=== PATIENT | female | born 1935 | race Caucasian/White ===

== ENCOUNTER → 2017-03-28 | Outpatient (CLI) | payer MEDICARE ==
[~2017-03-28] MED LIST: AMLO2.5T PO; BUSP10TA PO; METO50TA11 PO
[2017-03-28 09:09] LABS: HEMATOCRIT 35.7 % (35.0-46.0); MEAN CORPUSCULAR HGB CONC 30.9 % (32.0-36.0); PLATELET COUNT 275 TH/MM3 (150-450); RED BLOOD COUNT 5.24 MIL/MM3 (4.00-5.30); REVIEW FLAG FINAL; WHITE BLOOD COUNT 6.5 TH/MM3 (4.0-11.0)
[2017-03-28 09:20] LABS: APTT (PATIENT) 24.1 SEC (24.3-30.1); PROTHROMBIN TIME - PATIENT 10.9 SEC (9.8-11.6)
[2017-03-28 09:27] LABS: BLOOD, URINE NEG (NEG); GLUCOSE,URINE NEG (NEG); KETONE, URINE NEG (NEG); NITRITE,URINE NEG (NEG); SQUAMOUS EPITHELIAL CELL URINE <1 /hpf (0-5); URINE COLOR YELLOW (YELLW/STRAW)
[2017-03-28 09:29] LABS: COMMENT (UR) CATH-CULT NOT IND; CULTURE IF INDICATED CATH CULTURE NOT IND
[2017-03-28 10:13] LABS: BICARBONATE 25.2 MEQ/L (21.0-32.0); POTASSIUM 4.4 MEQ/L (3.5-5.1)
--- NOTE | 2017-03-28 21:16 | EKG ---
Date Performed: 03/28/2017 Time Performed: 08:44:10 PTAGE: 81 years EKG: Sinus rhythm WITH OCCASIONAL SUPRAVENTRICULAR PREMATURE COMPLEXES MINIMAL ST DEPRESSION BORDERLINE ECG NO PREVIOUS TRACING DOCTOR: Stefan Elliott Interpretating Date/Time 03/28/2017 21:15:38
== END ==
LOC: CPRE 08:11
PROVIDERS: ATTEND Orthopaedic Surgery
DX: Z01.810 Encounter for preprocedural cardiovascular examination (principal); Z01.812 Encounter for preprocedural laboratory examination; M79.609 Pain in unspecified limb; M17.11 Unilateral primary osteoarthritis, right knee; M21.061 Valgus deformity, not elsewhere classified, right knee; I10 Essential (primary) hypertension
CPT/HCPCS: 36415; 80048; 81001; 85027; 85610; 85730; 93005

== ENCOUNTER 2017-04-08 05:18 | Inpatient (IN) | payer MEDICARE ==
[~2017-04-08] VITALS: Ht 165.1 cm; Wt 62.7 kg
[2017-04-08] MEDS ORDERED: POVIDONE IODINE 5% (ANTISEPSIS KIT) 4 APPLICATIONS EACH NARE PRN (05:45)
[2017-04-08] MEDS ORDERED: EXPAREL PERI-ARTICULAR INJECTION (TOTAL VOL. 100 ML) P-ARTICULR SCH ×2 (05:45)
[2017-04-08] MEDS ORDERED: CHLORHEXIDINE GLUCONATE 4% SOLN 120 ML BTL TOPICAL SCH (05:45)
[2017-04-08] MEDS ORDERED: LACTATED RINGER'S 1000 ML IV PRN (05:45)
[2017-04-08] MEDS ORDERED: INSULIN HUMAN REGULAR 1,000 UNITS/10 ML VIAL SQ PRN (05:45)
[2017-04-08] MEDS ORDERED: CLINDAMYCIN 900 MG/NS 100 ML IV SCH ×2 (05:45)
[2017-04-08] MEDS ORDERED: CHLORHEXIDINE GLUCONATE 2 % 1 PACK (2 CLOTHS) TOPICAL PRN (05:45)
[2017-04-08] MEDS ORDERED: TRANEXAMIC ACID INJ 625 MG in SODIUM CHLORIDE 0.9% INJ 100 ML IV SCH ×4 (05:45)
[2017-04-08] MEDS ORDERED: METOPROLOL TARTRATE 25 MG TAB PO PRN (05:45)
[2017-04-08] MEDS ORDERED: SODIUM CHLORID 0.9% 500 ML IV PRN (05:45)
[2017-04-08] MEDS ORDERED: GENTAMICIN SULFATE 80 MG/2 ML VIAL ONE (06:09)
[2017-04-08] MEDS ORDERED: CLINDAMYCIN PHOS 900 MG/6 ML VIAL ONE (06:27)
[2017-04-08] MEDS ORDERED: BUPIVACAINE HCL PF 0.5% 30 ML VIAL ONE (06:41)
--- NOTE | 2017-04-08 06:42 | HHI.FF ---
Face to Face Verification Diagnosis: (1) Status post total right knee replacement Physical Therapy Gait training Knee: Total knee, Protocol: Right, Gait training, Full weight bearing Right LE Weight Bearing: WB as tolerated Right LE Range of Motion: Active ROM (AROM, AAROM, PROM. ROM goal is 0 to 140 degrees. ROM in the OR was 0 to 150 degrees.) Nursing Nursing: Dressing changes Dressing Changes: Daily dressing change (To start at postop day 7.), Coverderm/ Primapore Additional Instructions Remove steristrips on postop day 14. I have seen patient Myla Moran on 04/08/17. My clinical findings support the need for the requested home health care services because: Ltd mobility - disease progression Limited ability to care for self High risk of falls I certify that my clinical findings support that this patient is homebound because: Post-op weakness Unsteady gait/balance Unsafe to leave home unassisted Sintia Wayne MD (Charles) Apr 08, 2017 06:42
[2017-04-08] MEDS ORDERED: ZOLPIDEM TARTRATE 5 MG TAB PO PRN (06:45)
[2017-04-08] MEDS ORDERED: SODIUM CHLORIDE 0.9% FLUSH 5 ML FLUSH IVF PRN (06:45)
[2017-04-08] MEDS ORDERED: Post-op Orders (for Pharmacy) MISC XX ONE (06:45)
[2017-04-08] MEDS ORDERED: TRANEXAMIC ACID INJ 0 MG in SODIUM CHLORIDE 0.9% INJ 100 ML IV SCH (06:45)
[2017-04-08] MEDS ORDERED: ONDANSETRON HCL 4 MG/2 ML VIAL IVP PRN (06:45)
[2017-04-08] MEDS ORDERED: MORPHINE SULFATE 4 MG/ML INJ IV PUSH PRN (06:45)
[2017-04-08] MEDS ORDERED: ACETAMINOPHEN/HYDROcodone 325 MG/7.5 MG TAB PO PRN (06:45)
[2017-04-08] MEDS ORDERED: ASPI-99 PO (06:46)
--- NOTE | 2017-04-08 09:08 | HHI.PR ---
Immediate Post Op Note Procedure Date: Apr 08, 2017 Pre Op Diagnosis: (1) Primary osteoarthritis of right knee Post Op Diagnosis: (1) Primary osteoarthritis of right knee Surgeon: Isidoro Wayne MD Contact Center Associate(s): Mick Horton Procedure: Right total knee arthroplasty with [place] Triathlon prosthesis (uncemented) Findings: OA left knee Complications: none Specimen(s) removed: none Estimated blood loss: 150 ml Anesthesia: Regional Block (adductor canal), Spinal, Local (Exparel) Drains: Hemovac (2) IVF Patient to: PACU Patient Condition: Good Implant/Devices: SEE IMPLANT LOG (if applicable) Date/Time of Procedure: SEE SURGICAL CARE RECORD Sintia Wayne MD (Charles) Apr 08, 2017 09:08
--- NOTE | 2017-04-08 09:08 | HHI.PR ---
Immediate Post Op Note Procedure Date: Apr 08, 2017 Pre Op Diagnosis: (1) Primary osteoarthritis of right knee Post Op Diagnosis: (1) Primary osteoarthritis of right knee Surgeon: Isidoro Wayne MD Web Operations Manager(s): Mick Horton Procedure: Right total knee arthroplasty with [place] Triathlon prosthesis (uncemented) Findings: OA left knee Complications: none Specimen(s) removed: none Estimated blood loss: 150 ml Anesthesia: Regional Block (adductor canal), Spinal, Local (Exparel) Drains: Hemovac (2) IVF Patient to: PACU Patient Condition: Good Implant/Devices: SEE IMPLANT LOG (if applicable) Date/Time of Procedure: SEE SURGICAL CARE RECORD Sintia Wayne MD (Charles) Apr 08, 2017 09:08
[2017-04-08] MEDS ORDERED: HYDR-3580 PO (09:22)
[2017-04-08] MEDS: LACTATED RINGER'S 1000 ML INJ 1,000 ML IV SCH ×2 (09:50→18:14)
[2017-04-08] MEDS ORDERED: *morphine SULFATE 8 MG/ML PERIprocedure ONLY ONE (09:57)
--- NOTE | 2017-04-08 10:53 | MP ---
cc: Yana PETTY. DATE OF SURGERY 04/08/2017 PREOPERATIVE DIAGNOSIS Primary osteoarthritis right knee POSTOPERATIVE DIAGNOSIS Primary osteoarthritis right knee OPERATION PERFORMED Right total knee arthroplasty with [place] Triathlon prosthesis (uncemented). SURGEON Candi Petty MD [employer] Mick Saucedo ANESTHESIA Spinal with supplemental adductor canal block regional and local with Exparel. INDICATIONS AND FINDINGS This 81-year-old woman has had over 10 years of right knee pain that has progressively worsened to the point that her ambulation tolerance is now about 20 minutes. She has episodic giving-way with lateral pain especially, difficulty standing from a seated position, difficulty with changes in levels and difficulty fully extending the knee. She has been treated with analgesics, anti-inflammatory agents, exercise, intra-articular corticosteroids, ambulatory aids and has not responded to conservative measures at this time. PHYSICAL EXAM Showed significant genu valgum with lateral laxity and palpable osteophytes especially laterally. There is crepitation on range of motion. X-rays show loss of articular cartilage to [id number] in the lateral compartment with erosion into the lateral tibial plateau more posteriorly. There are medial, lateral and patellofemoral osteophytes. There is subchondral sclerosis. OPERATIVE FINDINGS The operative findings are consistent with the radiographic findings. There was loss of articular cartilage to exposed subchondral bone with eburnation in the lateral femur and tibia. There is also degeneration in the medial compartment with significant cartilaginous irregularity, as well as the patellofemoral compartment. PROSTHESIS USED [place] Triathlon prosthesis. The femoral component was a size 4 cruciate-retaining uncemented prosthesis. The tibia was a size 4 Tritanium baseplate with a 9 mm cruciate-retaining spacer of X3 polyethylene. The patella was a Tritanium backed asymmetric patella size 32. PROCEDURE The patient was brought to the clean-air operating suite and a spinal anesthetic was administered followed by an adductor canal block. She was then placed in the supine position on the operating table with a small bolster under the right hip. A pneumatic tourniquet was applied to the right thigh. The limb was then prepped with alcohol, Hibiclens and Chloraprep and draped in the usual manner with the knee draped free. An appropriate time-out procedure was carried out. An anterior incision was then made from about three fingerbreadths above the superior medial pole of patella down to the tibial tubercle. The incision was deepened through the subcutaneous tissues to the retinacular structures which were exposed medially and laterally. The medial retinacular incision was then made from the superior medial pole of patella down to the tibial tubercle, under the quadriceps tendon splitting it longitudinally in the medial one-third. The patella was reflected. The infrapatellar fat pad was debulked. The posterior surface of the patella was excised with the oscillating saw. A patella protector was applied. Fenestrations were then made in the distal femur and proximal tibia for intramedullary referencing guides. The distal femoral cutting guide and jig were assembled for a 5 degrees 8-mm cut. The distal femoral cut was completed with the oscillating saw. The sizing guide was then positioned along white sides line in the epicondylar axis. This was stabilized with pins. The size was determined to be a size four femur. The sizing guide was then removed. The four in one cutting block was positioned in place. Anterior and posterior cuts were made followed by posterior and anterior chamfer cuts. Osteophytes were trimmed. Medial and lateral meniscectomies were completed. Attention was directed to the tibia. The proximal tibial cutting guide and jig were assembled and positioned appropriately as far as rotations concerned and stabilized with pins. The depth of cut was verified with the stylus off the lateral side to resected 2 mm from the low side. The cutting block was stabilized with pins. This was adjusted according to appropriate depth with the spacer block. The was stabilized with a cross pin. The proximal tibial cut was then completed with the oscillating saw taking care to prevent injury to neurovascular and ligamentous structures. The spacer block determined that this was an appropriate cut. It was slightly tight laterally and therefore dissection was carried out to the iliotibial band. Pie-crusting of the iliotibial band allowed for some improvement in the mobility and position of the prosthesis. The posterior capsule and medial and lateral capsule were then anesthetized with local anesthetic. The tibial baseplate trial with a spacer size was inserted into position. The femoral trial was impacted into place and seated appropriately. The tibia was adjusted for appropriate rotation and position and stabilized with pins. The patella drill guide was positioned in place and patella drill holes made. The trial patella was positioned in place. The knee was taken through a range of motion which was easily 0 degrees extension to 150 degrees of flexion with appropriate tracking of the patella and appropriate stability. The femoral drill holes were then made. The femoral and patella trials were removed. The tibial spacer was removed. The tibial punch was impacted through its guide. The tibial drill guide was positioned after placement of bone graft in the fenestrations. The cut ends of bone were then cleaned with pulse lavage. The tibial baseplate was impacted into place and seated appropriately. The spacer was inserted and impacted into place. The femoral component was then impacted into place and seated appropriately. The patella had been seated in place and tightened with a patella vice. The remainder of the Exparel was injected throughout the knee. Drains were brought out the superior and lateral aspect of the suprapatellar pouch. Wound closure then commenced using 0 Vicryl interrupted [id number] sutures for retinacular and capsular structures and fascial structures, 2-0 Vicryl interrupted simple sutures with buried knots for the subcutaneous tissues and 4-0 Monocryl continuous subcuticular closure for the skin. The wound was dressed with Steri-Strips, followed by Octylseal dressing, sterile Sof-Rol, cooling pad, further sterile Sof-Rol, and Nathan bandage from the base of the toes to midthigh. The patient was transferred from the operating room to the recovery room in satisfactory condition having tolerated the procedure well. Counts were correct. Specimens, none. Estimated blood loss 150 mL. MD LISA Butler/CLOVIS /9:10 AM /10:37 AM
[2017-04-08] MEDS ORDERED: DO NOT ADM ANY ANTICOAGULANT DRUGS PRN (11:00)
--- NOTE | 2017-04-08 11:03 | RADRPT ---
EXAM DATE/TIME: 04/08/2017 09:58 [place] COMPARISON: No previous studies available for comparison. INDICATIONS : Post op right total knee. MEDICAL HISTORY : Unobtainable. SURGICAL HISTORY : Unobtainable. ENCOUNTER: Initial ACUITY: 1 day PAIN SCORE: Non-responsive. LOCATION: Right knee. FINDINGS: Two-view examination demonstrates total knee arthroplasty with orthotopic alignment of the osseous st ructures. The hardware appears intact. Surgical drain in the suprapatellar region. Vascular calcif ication. CONCLUSION: Expected postoperative findings total knee arthroplasty. Jeremie Campos MD on April 08, 2017 at 11:00 Board Certified Radiologist. This report was verified electronically.
[2017-04-08] MEDS: amLODIPine BESYLATE 5 MG TAB PO SCH (11:20)
[2017-04-08] MEDS: busPIRone HCL 10 MG TAB PO SCH ×2 (11:49→21:25)
[2017-04-08] MEDS: KETOROLAC TROMETHAMINE 30 MG/ML (IVP) VIAL IVP SCH ×2 (11:49→18:10)
[2017-04-08] MEDS ORDERED: *MEPERIDINE 25 MG INJ VIAL PERIprocedural Use ONLY ONE (12:15)
[2017-04-08] MEDS: MAGNESIUM HYDROXIDE SUSP 30 ML CUP PO PRN (13:09)
[2017-04-08 15:43] VITALS: BP 115/70; PULSE 68; RESP 17; TEMP 96.1; O2SAT 100
[2017-04-08] MEDS: CLINDAMYCIN INJ 900 MG in SODIUM CHLORIDE 0.9% INJ 100 ML IV SCH (16:00)
[2017-04-08 16:05] VITALS: O2SAT 93
[2017-04-08] MEDS ORDERED: PILL SPLITTER OTHER PRN (18:15)
[2017-04-08 19:35] VITALS: BP 107/68; PULSE 79; RESP 18; TEMP 97.5; O2SAT 97
--- NOTE | 2017-04-08 21:16 | PD.CONS ---
[facility] Consult Requested By Dr. Wayne Reason for Consult Medical management history of hypertension Primary Care Physician Primary Care physician from [facility] Dr. Collins Diagnoses: History of Present Illness Patient is a very pleasant 81-year-old female with known history of hypertension who has been having increasing pain on the right knee for the last 5 years. Patient gets steroid shots periodically and this hasn't been working. Increasing pain prompted patient to decide on having this surgery. She described pain as "crippling". Patient underwent right total knee arthroplasty this morning is doing well. Pain is well controlled. Patient is very motivated with more physical therapy[facility] Review of Systems Constitutional: DENIES: Fever, Weight loss, Chills, Change in appetite Eyes: DENIES: Blurred vision, Double Vision Ears, nose, mouth, throat: DENIES: Tinnitus, Ear Pain, Epistaxis, Odynophagia Respiratory: DENIES: Cough, Hemoptysis, Sputum production, Shortness of breath Cardiovascular: DENIES: Chest pain, Palpitations, Dyspnea on Exertion, Lower Extremity Edema, Orthopnea Gastrointestinal: DENIES: Black stools, Bloody stools, Difficulty Swallowing, Anorexia Genitourinary: DENIES: Urgency, Hematuria, Vaginal discharge Musculoskeletal: DENIES: Joint pain, Stiffness Integumentary: DENIES: Pruritus Hematologic/lymphatic: DENIES: Bruising Immunologic/allergic: DENIES: Urticaria Neurologic: DENIES: Headache, Speech Problems, Tremor Psychiatric: DENIES: Suicidal Ideation, Homicidal Ideation Past Family Social History Allergies: Coded Allergies: Penicillins (Verified Allergy, Severe, Anaphylaxis, 04/08/17) Past Medical History History of hypertension History of anxiety disorder Past Surgical History Left knee surgery about 20 years ago History of hemorrhoidectomy Reported Medications Toprol 50 mg XL daily Amlodipine 2.5 mg daily BuSpar 10 mg twice a day Active Ordered Medications See EMR Family History Family history noncontributory Social History Never smoked. Drinks wine before dinner at least 3 times a week No history of substance abuse Physical Exam Vital Signs Vital Signs Date Time Temp Pulse Resp B/P (MAP) Pulse Ox O2 Delivery O2 Flow Rate FiO2 04/08/17 16:05 93 Nasal Cannula 3.00 04/08/17 15:43 96.1 68 17 115/70 (85) 100 04/08/17 12:00 98.6 58 15 155/77 (103) 96 Nasal Cannula 2 04/08/17 11:00 64 15 164/87 (112) 100 Nasal Cannula 3 04/08/17 10:30 56 20 162/96 (118) 100 Nasal Cannula 3 04/08/17 10:15 50 17 160/90 (113) 100 Nasal Cannula 3 04/08/17 10:02 14 04/08/17 10:00 46 20 140/94 (109) 100 Nasal Cannula 3 04/08/17 09:45 52 22 114/64 (81) 100 Nasal Cannula 3 04/08/17 09:38 97.8 56 20 103/69 (80) 100 Nasal Cannula 3 04/08/17 05:51 97.9 70 20 183/96 (125) 100 Physical Exam GENERAL: This is a well-nourished, well-developed patient, in no apparent distress. Awake alert oriented 3 speech clear SKIN: Cool and dry. HEAD: Atraumatic. Normocephalic. No temporal or scalp tenderness. EYES: Pupils equal round and reactive. Extraocular motions intact. No scleral icterus. No injection or drainage. ENT: Nose without bleeding, purulent drainage or septal hematoma. Throat without erythema, tonsillar hypertrophy or exudate. Uvula midline. Airway patent. NECK: Trachea midline. No JVD or lymphadenopathy. Supple, nontender, no meningeal signs. CARDIOVASCULAR: Regular rate and rhythm without murmurs, gallops, or rubs. RESPIRATORY: Clear to auscultation. Breath sounds equal bilaterally. No wheezes , rales, or rhonchi. GASTROINTESTINAL: Abdomen soft, non-tender, nondistended. No hepato-splenomegaly , or palpable masses. No guarding. MUSCULOSKELETAL: Right knee with post op dressing in place on a CPM, good peripheral pulses NEUROLOGICAL: Nonfocal Imaging Last Impressions Knee X-Ray 04/08/17 0635 Signed Impressions: Service Date/Time: Saturday, April 08, 2017 09:58 - CONCLUSION: Expected postoperative findings total knee arthroplasty. Jeremie Campos MD Assessment and Plan Assessment and Plan 81-year-old female admitted for Status post right total knee arthroplasty 04/08 secondary to right knee osteoarthritis Orthopedic surgery following ASA daily for DVT prophylaxis per Ortho. PT consult. Incentive spirometry hourly. Patient with good efforts. When necessary pain meds per primary service Hypertension continue on Toprol-XL 50 mg daily. Amlodipine 2.5 mg daily History of anxiety disorder. Continue BuSpar 10 mg twice a day Discharge planning going to rehabilitation facility in [facility] per patient showcase maker consulted Thank you for this consult we'll follow patient in-house with you Discussed Condition With Patient Zuleyka Avilez MD Apr 08, 2017 21:16
--- NOTE | 2017-04-08 21:16 | PD.CONS ---
[facility] By Dr. Wayne Reason for Consult Medical management history of hypertension Primary Care Physician Primary Care physician from [facility] Dr. Collins Diagnoses: History of Present Illness Patient is a very pleasant 81-year-old female with known history of hypertension who has been having increasing pain on the right knee for the last 5 years. Patient gets steroid shots periodically and this hasn't been working. Increasing pain prompted patient to decide on having this surgery. She described pain as "crippling". Patient underwent right total knee arthroplasty this morning is doing well. Pain is well controlled. Patient is very motivated with more physical therapy. [facility] Review of Systems Constitutional: DENIES: Fever, Weight loss, Chills, Change in appetite Eyes: DENIES: Blurred vision, Double Vision Ears, nose, mouth, throat: DENIES: Tinnitus, Ear Pain, Epistaxis, Odynophagia Respiratory: DENIES: Cough, Hemoptysis, Sputum production, Shortness of breath Cardiovascular: DENIES: Chest pain, Palpitations, Dyspnea on Exertion, Lower Extremity Edema, Orthopnea Gastrointestinal: DENIES: Black stools, Bloody stools, Difficulty Swallowing, Anorexia Genitourinary: DENIES: Urgency, Hematuria, Vaginal discharge Musculoskeletal: DENIES: Joint pain, Stiffness Integumentary: DENIES: Pruritus Hematologic/lymphatic: DENIES: Bruising Immunologic/allergic: DENIES: Urticaria Neurologic: DENIES: Headache, Speech Problems, Tremor Psychiatric: DENIES: Suicidal Ideation, Homicidal Ideation Past Family Social History Allergies: Coded Allergies: Penicillins (Verified Allergy, Severe, Anaphylaxis, 04/08/17) Past Medical History History of hypertension History of anxiety disorder Past Surgical History Left knee surgery about 20 years ago History of hemorrhoidectomy Reported Medications Toprol 50 mg XL daily Amlodipine 2.5 mg daily BuSpar 10 mg twice a day Active Ordered Medications See EMR Family History Family history noncontributory Social History Never smoked. Drinks wine before dinner at least 3 times a week No history of substance abuse Physical Exam Vital Signs Vital Signs Date Time Temp Pulse Resp B/P (MAP) Pulse Ox O2 Delivery O2 Flow Rate FiO2 04/08/17 16:05 93 Nasal Cannula 3.00 04/08/17 15:43 96.1 68 17 115/70 (85) 100 04/08/17 12:00 98.6 58 15 155/77 (103) 96 Nasal Cannula 2 04/08/17 11:00 64 15 164/87 (112) 100 Nasal Cannula 3 04/08/17 10:30 56 20 162/96 (118) 100 Nasal Cannula 3 04/08/17 10:15 50 17 160/90 (113) 100 Nasal Cannula 3 04/08/17 10:02 14 04/08/17 10:00 46 20 140/94 (109) 100 Nasal Cannula 3 04/08/17 09:45 52 22 114/64 (81) 100 Nasal Cannula 3 04/08/17 09:38 97.8 56 20 103/69 (80) 100 Nasal Cannula 3 04/08/17 05:51 97.9 70 20 183/96 (125) 100 Physical Exam GENERAL: This is a well-nourished, well-developed patient, in no apparent distress. Awake alert oriented 3 speech clear SKIN: Cool and dry. HEAD: Atraumatic. Normocephalic. No temporal or scalp tenderness. EYES: Pupils equal round and reactive. Extraocular motions intact. No scleral icterus. No injection or drainage. ENT: Nose without bleeding, purulent drainage or septal hematoma. Throat without erythema, tonsillar hypertrophy or exudate. Uvula midline. Airway patent. NECK: Trachea midline. No JVD or lymphadenopathy. Supple, nontender, no meningeal signs. CARDIOVASCULAR: Regular rate and rhythm without murmurs, gallops, or rubs. RESPIRATORY: Clear to auscultation. Breath sounds equal bilaterally. No wheezes , rales, or rhonchi. GASTROINTESTINAL: Abdomen soft, non-tender, nondistended. No hepato-splenomegaly , or palpable masses. No guarding. MUSCULOSKELETAL: Right knee with post op dressing in place on a CPM, good peripheral pulses NEUROLOGICAL: Nonfocal Imaging Last Impressions Knee X-Ray 04/08/17 0635 Signed Impressions: Service Date/Time: Saturday, April 08, 2017 09:58 - CONCLUSION: Expected postoperative findings total knee arthroplasty. Jeremie Campos MD Assessment and Plan Assessment and Plan 81-year-old female admitted for Status post right total knee arthroplasty 04/08 secondary to right knee osteoarthritis Orthopedic surgery following ASA daily for DVT prophylaxis per Ortho. PT consult. Incentive spirometry hourly. Patient with good efforts. When necessary pain meds per primary service Hypertension continue on Toprol-XL 50 mg daily. Amlodipine 2.5 mg daily History of anxiety disorder. Continue BuSpar 10 mg twice a day Discharge planning going to rehabilitation facility in [facility] per patient mental health case manager consulted Thank you for this consult we'll follow patient in-house with you Discussed Condition With Patient Zuleyka Avilez MD Apr 08, 2017 21:16
[2017-04-08] MEDS: SODIUM CHLORIDE 0.9% FLUSH 5 ML FLUSH IVF SCH (21:25)
[2017-04-09] VITALS (8 sets, daily range): BP systolic 111–130; BP diastolic 65–82; PULSE 67–77; RESP 17–19; TEMP 96.4–97.8; O2SAT 92–100
[2017-04-09] MEDS: CLINDAMYCIN INJ 900 MG in SODIUM CHLORIDE 0.9% INJ 100 ML IV SCH ×2 (00:05→06:44)
[2017-04-09] MEDS: KETOROLAC TROMETHAMINE 30 MG/ML (IVP) VIAL IVP SCH ×5 (00:05→22:50)
[2017-04-09 06:14] LABS: HEMATOCRIT 26.1 % (35.0-46.0); HEMOGLOBIN 8.3 GM/DL (11.6-15.3)
[2017-04-09] MEDS: MAGNESIUM HYDROXIDE SUSP 30 ML CUP PO PRN (06:44)
[2017-04-09] MEDS: LACTATED RINGER'S 1000 ML INJ 1,000 ML IV SCH ×2 (07:35→19:28)
--- NOTE | 2017-04-09 07:37 | PD.ORT.PN ---
Subjective Post Op Day #: 1 Subjective Remarks She is doing well, with minimal pain. She could have walked more with PT if given the chance. Range of Motion -5 to 93 degrees. Distance Walked 55 feet. Objective Vitals Vital Signs Date Time Temp Pulse Resp B/P (MAP) Pulse Ox O2 Delivery O2 Flow Rate FiO2 04/09/17 04:05 97.4 77 17 123/70 (87) 98 04/09/17 00:05 97.4 75 17 113/69 (84) 98 04/08/17 19:35 97.5 79 18 107/68 (81) 97 04/08/17 16:05 93 Nasal Cannula 3.00 04/08/17 15:43 96.1 68 17 115/70 (85) 100 04/08/17 12:00 98.6 58 15 155/77 (103) 96 Nasal Cannula 2 04/08/17 11:00 64 15 164/87 (112) 100 Nasal Cannula 3 04/08/17 10:30 56 20 162/96 (118) 100 Nasal Cannula 3 04/08/17 10:15 50 17 160/90 (113) 100 Nasal Cannula 3 04/08/17 10:02 14 04/08/17 10:00 46 20 140/94 (109) 100 Nasal Cannula 3 04/08/17 09:45 52 22 114/64 (81) 100 Nasal Cannula 3 04/08/17 09:38 97.8 56 20 103/69 (80) 100 Nasal Cannula 3 I/O 04/08/17 04/08/17 04/08/17 04/09/17 04/09/17 04/09/17 07:00 15:00 23:00 07:00 15:00 23:00 Intake Total 1000 ml 460 ml 586 ml Output Total 320 ml 80 ml 40 ml Balance 680 ml 380 ml 546 ml Intake Oral 360 ml 480 ml IV Total 400 ml 100 ml 106 ml Other 600 ml Output Drainage Total 170 ml 80 ml 40 ml Estimated Blood Loss 150 ml # Voids 2 1 # Bowel Movements 0 0 Result Diagram: 04/09/17 0445 Imaging Last 72 hours Impressions Knee X-Ray 04/08/17 0635 Signed Impressions: Service Date/Time: Saturday, April 08, 2017 09:58 - CONCLUSION: Expected postoperative findings total knee arthroplasty. Jeremie Campos MD Objective Remarks She is resting comfortably, supine in bed in the CPM. The dressing is dry and intact. The neurovascular status is intact. Assessment & Plan Ortho Post Op Day #: 1 Problem List: (1) Status post total right knee replacement ICD Codes: Z96.651 - Presence of right artificial knee joint Plan: Continue postop care and PT. Assessment and Plan Condition: Good. Orthopaedically stable. DVT prophylaxis: ASA, sequentials, TEDs. Discharge plans: Home with HHC versus SNF ([facility]) for therapy, since she lives alone. Has appointment. Rx Adrian 7.5/325 Sintia Wayne MD (Charles) Apr 09, 2017 07:37
--- NOTE | 2017-04-09 08:44 | HHI.PR ---
Subjective Remarks The patient is in bed says pain is better controlled today. However she is complaining of constipation for 3 days. No abdominal pain no nausea or vomiting. No chest pain or shortness of breath. Encourage PT, encourage incentive spirometry. She doesn't have any fever or chills. Objective Vitals Vital Signs Date Time Temp Pulse Resp B/P (MAP) Pulse Ox O2 Delivery O2 Flow Rate FiO2 04/09/17 07:43 96.9 71 19 120/73 (89) 99 04/09/17 04:05 97.4 77 17 123/70 (87) 98 04/09/17 00:05 97.4 75 17 113/69 (84) 98 04/08/17 19:35 97.5 79 18 107/68 (81) 97 04/08/17 16:05 93 Nasal Cannula 3.00 04/08/17 15:43 96.1 68 17 115/70 (85) 100 04/08/17 12:00 98.6 58 15 155/77 (103) 96 Nasal Cannula 2 04/08/17 11:00 64 15 164/87 (112) 100 Nasal Cannula 3 04/08/17 10:30 56 20 162/96 (118) 100 Nasal Cannula 3 04/08/17 10:15 50 17 160/90 (113) 100 Nasal Cannula 3 04/08/17 10:02 14 04/08/17 10:00 46 20 140/94 (109) 100 Nasal Cannula 3 04/08/17 09:45 52 22 114/64 (81) 100 Nasal Cannula 3 04/08/17 09:38 97.8 56 20 103/69 (80) 100 Nasal Cannula 3 I/O 04/08/17 04/08/17 04/08/17 04/09/17 04/09/17 04/09/17 07:00 15:00 23:00 07:00 15:00 23:00 Intake Total 1000 ml 460 ml 586 ml Output Total 320 ml 80 ml 40 ml Balance 680 ml 380 ml 546 ml Intake Oral 360 ml 480 ml IV Total 400 ml 100 ml 106 ml Other 600 ml Output Drainage Total 170 ml 80 ml 40 ml Estimated Blood Loss 150 ml # Voids 2 1 # Bowel Movements 0 0 Result Diagram: 04/09/17 0445 Imaging Last Impressions Knee X-Ray 04/08/1735 Signed Impressions: Service Date/Time: Saturday, April 08, 2017 09:58 - CONCLUSION: Expected postoperative findings total knee arthroplasty. Jeremie Campos MD Objective Remarks GENERAL: This is a pleasant elderly female, well-nourished, well-developed patient, in no apparent distress. Awake alert oriented 3 speech clear SKIN: Cool and dry. CARDIOVASCULAR: Regular rate and rhythm without murmurs, gallops, or rubs. RESPIRATORY: Clear to auscultation. Breath sounds equal bilaterally. No wheezes , rales, or rhonchi. GASTROINTESTINAL: Abdomen soft, non-tender, nondistended. No hepato-splenomegaly , or palpable masses. No guarding. MUSCULOSKELETAL: Right knee with post op dressing in place on a CPM, good peripheral pulses NEUROLOGICAL: Nonfocal A/P Assessment and Plan 81-year-old female with : Severe osteoarthritis of the right knee. 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 PT consult. Incentive spirometry hourly. Patient with good efforts. When necessary pain meds per primary service Hypertension -continue on Toprol-XL 50 mg daily. Amlodipine 2.5 mg daily History of anxiety disorder. Continue BuSpar 10 mg twice a day Constipation. Add lactulose, continue bowel movement regimen. Discharge planning going to rehabilitation facility in [facility] per patient , rn case manager consulted and following for DC plan Thank you for this consult we'll follow with you Discussed Condition With Patient, nurse Kristine Sifuentes MD Apr 09, 2017 08:44
[2017-04-09] MEDS: SODIUM CHLORIDE 0.9% FLUSH 5 ML FLUSH IVF SCH ×2 (08:59→19:35)
[2017-04-09] MEDS: busPIRone HCL 10 MG TAB PO SCH ×2 (08:59→19:34)
[2017-04-09] MEDS: amLODIPine BESYLATE 5 MG TAB PO SCH (08:59)
[2017-04-09] MEDS: METOPROLOL SUCCINATE 50 MG EXTENDED RELEASE TAB PO SCH (08:59)
[2017-04-09] MEDS: ASPIRIN EC 81 MG TABEC PO SCH ×2 (08:59→19:34)
[2017-04-09] MEDS ORDERED: INFLUENZA VIRUS VACCINE (QUADRIVALENT) 0.5 ML SYR IM ONE (10:00)
[2017-04-09] MEDS ORDERED: PNEUMOCOCCAL POLYVALENT INJ 25 MCG/0.5 ML SYR IM ONE (10:00)
[2017-04-09] MEDS: ACETAMINOPHEN/HYDROcodone 325 MG/7.5 MG TAB PO PRN ×2 (13:55→22:50)
[2017-04-09] MEDS ORDERED: LACTULOSE SYRUP 20 GM/30 ML CUP PO PRN (14:00)
[2017-04-09] MEDS ORDERED: LACTULOSE SYRUP 20 GM/30 ML CUP PO ONE (14:00)
[2017-04-09] MEDS: DOCUSATE SODIUM 100 MG CAP PO SCH (19:34)
[2017-04-10] VITALS (8 sets, daily range): BP systolic 104–150; BP diastolic 57–86; PULSE 61–79; RESP 17–18; TEMP 97–99.9; O2SAT 95–100
[2017-04-10] MEDS: KETOROLAC TROMETHAMINE 30 MG/ML (IVP) VIAL IVP SCH (05:45)
[2017-04-10 06:52] LABS: HEMATOCRIT 24.1 % (35.0-46.0); HEMOGLOBIN 7.7 GM/DL (11.6-15.3)
[2017-04-10] MEDS: LACTATED RINGER'S 1000 ML INJ 1,000 ML IV SCH ×2 (08:35→21:05)
[2017-04-10] MEDS: DOCUSATE SODIUM 100 MG CAP PO SCH ×2 (09:00→20:22)
[2017-04-10] MEDS: SODIUM CHLORIDE 0.9% FLUSH 5 ML FLUSH IVF SCH ×2 (09:00→20:22)
[2017-04-10] MEDS: amLODIPine BESYLATE 5 MG TAB PO SCH (10:05)
[2017-04-10] MEDS: busPIRone HCL 10 MG TAB PO SCH ×2 (10:05→20:22)
[2017-04-10] MEDS: ASPIRIN EC 81 MG TABEC PO SCH ×2 (10:05→20:22)
[2017-04-10] MEDS: METOPROLOL SUCCINATE 50 MG EXTENDED RELEASE TAB PO SCH (10:05)
[2017-04-10] MEDS: ACETAMINOPHEN/HYDROcodone 325 MG/7.5 MG TAB PO PRN ×2 (10:06→23:47)
--- NOTE | 2017-04-10 10:25 | PD.ORT.PN ---
Subjective Post Op Day #: 2 Subjective Remarks She is doing well, with minimal pain. She is happy with her progress with PT. Range of Motion -3 to 104 degrees. Distance Walked 75 feet with PT. Objective Vitals Vital Signs Date Time Temp Pulse Resp B/P (MAP) Pulse Ox O2 Delivery O2 Flow Rate FiO2 04/10/17 08:00 98.0 61 18 142/73 (96) 98 04/10/17 04:05 97.7 64 17 112/57 (75) 97 04/10/17 00:00 97.7 72 17 104/57 (73) 96 04/09/17 19:00 97.3 67 18 129/82 (98) 100 04/09/17 15:51 97.8 71 19 130/72 (91) 96 04/09/17 15:30 97.3 67 18 113/69 (84) 100 04/09/17 11:41 96.4 68 19 111/65 (80) 98 I/O 04/09/17 04/09/17 04/09/17 04/10/17 04/10/17 04/10/17 07:00 15:00 23:00 07:00 15:00 23:00 Intake Total 586 ml 650 ml 240 ml 240 ml Output Total 40 ml 85 ml 80 ml 60 ml Balance 546 ml 565 ml 160 ml 180 ml Intake Oral 480 ml 650 ml 240 ml 240 ml IV Total 106 ml Output Drainage Total 40 ml 85 ml 80 ml 60 ml # Voids 1 2 1 1 # Bowel Movements 0 0 0 Result Diagram: 04/10/17 0542 Imaging Last 72 hours Impressions Knee X-Ray 04/08/17 0635 Signed Impressions: Service Date/Time: Saturday, April 08, 2017 09:58 - CONCLUSION: Expected postoperative findings total knee arthroplasty. Jeremie Campos MD Objective Remarks She is resting comfortably, supine in bed in the CPM. The dressing is dry and intact. The neurovascular status is intact. Assessment & Plan Ortho Post Op Day #: 2 Problem List: (1) Status post total right knee replacement ICD Codes: Z96.651 - Presence of right artificial knee joint Plan: Continue postop care and PT. Assessment and Plan Condition: Good. Orthopaedically stable. DVT prophylaxis: ASA, sequentials, TEDs. Discharge plans: Home with HHC versus SNF (probably [facility]) for therapy, since she lives alone. Has appointment. Rx [place] 7.5/325 Sintia Wayne MD (Charles) Apr 10, 2017 10:25
--- NOTE | 2017-04-10 10:57 | HHI.PR ---
Subjective Remarks Follow-up for anemia, osteoarthritis Patient feels good, no dizziness, lightheadedness, fatigue. Feels better today than yesterday. No tachycardia. Pain is controlled. No Hematochezia or melena. Objective Vitals Vital Signs Date Time Temp Pulse Resp B/P (MAP) Pulse Ox O2 Delivery O2 Flow Rate FiO2 04/10/17 08:00 98.0 61 18 142/73 (96) 98 04/10/17 04:05 97.7 64 17 112/57 (75) 97 04/10/17 00:00 97.7 72 17 104/57 (73) 96 04/09/17 19:00 97.3 67 18 129/82 (98) 100 04/09/17 15:51 97.8 71 19 130/72 (91) 96 04/09/17 15:30 97.3 67 18 113/69 (84) 100 04/09/17 11:41 96.4 68 19 111/65 (80) 98 I/O 04/09/17 04/09/17 04/09/17 04/10/17 04/10/17 04/10/17 07:00 15:00 23:00 07:00 15:00 23:00 Intake Total 586 ml 650 ml 240 ml 240 ml Output Total 40 ml 85 ml 80 ml 60 ml Balance 546 ml 565 ml 160 ml 180 ml Intake Oral 480 ml 650 ml 240 ml 240 ml IV Total 106 ml Output Drainage Total 40 ml 85 ml 80 ml 60 ml # Voids 1 2 1 1 # Bowel Movements 0 0 0 Result Diagram: 04/10/17 0542 Objective Remarks GENERAL: This is a pleasant elderly female, well-nourished, well-developed patient, in no apparent distress. Awake alert oriented 3 speech clear CARDIOVASCULAR: Regular rate and rhythm without murmurs, gallops, or rubs. RESPIRATORY: Clear to auscultation. Breath sounds equal bilaterally. No wheezes , rales, or rhonchi. GASTROINTESTINAL: Abdomen soft, non-tender, nondistended. No hepato-splenomegaly , or palpable masses. No guarding. MUSCULOSKELETAL: Right knee dressings in place. Drain in place with sanguinous output NEUROLOGICAL: Nonfocal, alert awake and oriented. A/P Assessment and Plan 81-year-old female with : Severe osteoarthritis of the right knee. 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 PT consult. Incentive spirometry hourly. Patient with good efforts. When necessary pain meds per primary service Hypertension -continue on Toprol-XL 50 mg daily. Amlodipine 2.5 mg daily History of anxiety disorder. Continue BuSpar 10 mg twice a day Constipation.-Continue bowel regimen. Mild anemia-could be postoperative, monitor, patient is asymptomatic, transfusion per orthopedics. Recheck CBC tomorrow. Discharge Planning Discharge planning going to rehabilitation facility in [facility] per patient , case monitor consulted and following for DC plan Sharon Neal MD Apr 10, 2017 10:57
[2017-04-11 03:17] VITALS: BP 136/76; PULSE 77; RESP 17; TEMP 98.2; O2SAT 96
[2017-04-11] MEDS: ACETAMINOPHEN/HYDROcodone 325 MG/7.5 MG TAB PO PRN (05:58)
[2017-04-11] MEDS: MAGNESIUM HYDROXIDE SUSP 30 ML CUP PO PRN (05:58)
--- NOTE | 2017-04-11 07:11 | PD.ORT.PN ---
Subjective Post Op Day #: 3 Subjective Remarks She is still doing well, with minimal pain. She is happy with her progress with PT. Range of Motion 0 to 110 degrees. Distance Walked 120 feet. Objective Vitals Vital Signs Date Time Temp Pulse Resp B/P (MAP) Pulse Ox O2 Delivery O2 Flow Rate FiO2 04/11/17 03:17 98.2 77 17 136/76 (96) 96 04/10/17 23:00 97.7 79 18 136/77 (96) 95 04/10/17 19:53 100 Nasal Cannula 2.00 04/10/17 19:09 99.9 76 18 150/86 (107) 95 04/10/17 16:27 97.0 72 18 149/82 (104) 100 04/10/17 12:04 97.5 69 18 110/68 (82) 99 04/10/17 11:06 16 04/10/17 08:00 98.0 61 18 142/73 (96) 98 I/O 04/10/17 04/10/17 04/10/17 04/11/17 04/11/17 04/11/17 07:00 15:00 23:00 07:00 15:00 23:00 Intake Total 240 ml 240 ml 720 ml 480 ml Output Total 60 ml 10 ml Balance 180 ml 240 ml 710 ml 480 ml Intake Oral 240 ml 240 ml 720 ml 480 ml Output Drainage Total 60 ml 10 ml # Voids 1 2 3 2 # Bowel Movements 0 0 0 0 Result Diagram: 04/10/17 0542 Imaging Last 72 hours Impressions Knee X-Ray 04/08/17 0635 Signed Impressions: Service Date/Time: Saturday, April 08, 2017 09:58 - CONCLUSION: Expected postoperative findings total knee arthroplasty. Jeremie Campos MD Objective Remarks She is resting comfortably, supine in bed in the [facility]. The dressing is dry and intact. There is no erythema nor induration. The neurovascular status is intact. Assessment & Plan Ortho Post Op Day #: 3 Problem List: (1) Status post total right knee replacement ICD Codes: Z96.651 - Presence of right artificial knee joint Plan: Continue postop care and PT. Assessment and Plan Condition: Good. Orthopaedically stable. DVT prophylaxis: ASA, sequentials, TEDs. Discharge plans: SNF (probably [facility]) for therapy, since she lives alone. Has appointment. Rx [place] 7.5/325 Sintia Wayne MD ([place]) Apr 11, 2017 07:11
[2017-04-11 08:00] VITALS: BP 122/73; PULSE 71; RESP 18; TEMP 97.8; O2SAT 95
[2017-04-11] MEDS: DOCUSATE SODIUM 100 MG CAP PO SCH (08:59)
[2017-04-11] MEDS: ASPIRIN EC 81 MG TABEC PO SCH (08:59)
[2017-04-11] MEDS: METOPROLOL SUCCINATE 50 MG EXTENDED RELEASE TAB PO SCH (08:59)
[2017-04-11] MEDS: SODIUM CHLORIDE 0.9% FLUSH 5 ML FLUSH IVF SCH (09:00)
[2017-04-11] MEDS: amLODIPine BESYLATE 5 MG TAB PO SCH (09:00)
[2017-04-11] MEDS: busPIRone HCL 10 MG TAB PO SCH (09:00)
[2017-04-11 09:53] VITALS: O2SAT 99
== END 2017-04-11 10:57 | DRG 470 ==
LOC: HSDI 05:18 → N06B 12:34
PROVIDERS: ADMIT Orthopaedic Surgery; ATTEND Orthopaedic Surgery
PROC: 3E0T3BZ Introduction of Anesthetic Agent into Peripheral Nerves and Plexi, Percutaneous Approach (ICD-10-PCS; 2017-04-08)
PROC: 0SRC0JA Replacement of Right Knee Joint with Synthetic Substitute, Uncemented, Open Approach (ICD-10-PCS; principal; 2017-04-08 06:38)
DX: M17.11 Unilateral primary osteoarthritis, right knee (principal); D64.9 Anemia, unspecified; I10 Essential (primary) hypertension; K59.00 Constipation, unspecified; F41.9 Anxiety disorder, unspecified; Z23 Encounter for immunization
CPT/HCPCS: 73560; 85014; 85018; 86850; 86900; 86901; 90686; 90732; 94150; C9290; J1580; J1885; J2175; J2270; J7120; Q2038

== ENCOUNTER 2017-08-31 11:49 | Emergency (ER) | payer MEDICARE ==
[~2017-08-31 11:49] MED LIST changes: +ASPI1TAB56 PO; +HYDR-3580 PO; +METO1TAB9 PO; -METO50TA11 PO
[2017-08-31 11:56] VITALS: BP 183/98; PULSE 91; RESP 18; TEMP 98.3; O2SAT 100
--- NOTE | 2017-08-31 14:47 | PD ---
HPI Chief Complaint: Anxiety Time Seen by Provider: 14:38 Travel History International Travel<30 days: No Contact w/Intl Traveler<30days: No Traveled to known affect area: No History of Present Illness HPI 81 yo F complains of anxiety associated with moving. She is scheduled to close her house sale in about 5 days time and move. She reports anxiety due to the responsibilities related to her friend. She is here without complaint of medical nature and denies specifically chest pain shortness of breath palpitations dizziness nausea headache. She has no suicidal/homicidal ideation. She reports she has Ativan at home however did not think to take any of it. History Past Medical Histgory Hx Cancer: No Hx Chemotherapy: No Hx Radiation Therapy: No Allergies-Medications (Allergen,Severity, Reaction): Coded Allergies: Penicillins (Verified Allergy, Severe, Anaphylaxis, 08/31/17) Reported Meds & Prescriptions Reported Meds & Active Scripts Active Adult Aspirin EC Low Strength (Aspirin) 81 Mg Tabec 81 Mg PO BID Reported Lorazepam 1 Mg Tab 1 Mg PO DAILY PRN Amlodipine (Amlodipine Besylate) 2.5 Mg Tab 2.5 Mg PO DAILY Buspirone (Buspirone HCl) 10 Mg Tab 10 Mg PO BID Metoprolol Succinate ER 24 HR (Metoprolol Succinate) 50 Mg Tab 50 Mg PO DAILY Review of Systems Except as stated in HPI: all other systems reviewed are Neg General / Constitutional: No: Fever Physical Exam Narrative GENERAL: 81-year-old female pleasant well-nourished well-developed Vital Signs Date Time Temp Pulse Resp B/P (MAP) Pulse Ox O2 Delivery O2 Flow Rate FiO2 08/31/17 14:52 80 18 177/65 (102) 100 08/31/17 11:56 98.3 91 18 183/98 (126) 100 SKIN: Warm and dry. HEAD: Atraumatic. Normocephalic. EYES: Pupils equal and round. No scleral icterus. No injection or drainage. ENT: No nasal bleeding or discharge. Mucous membranes pink and moist. NECK: Trachea midline. No JVD. CARDIOVASCULAR: Regular rate and rhythm. RESPIRATORY: No accessory muscle use. Clear to auscultation. Breath sounds equal bilaterally. GASTROINTESTINAL: Abdomen soft, non-tender, nondistended. Hepatic and splenic margins not palpable. MUSCULOSKELETAL: Extremities without clubbing, cyanosis, or edema. No obvious deformities. NEUROLOGICAL: Awake and alert. No obvious cranial nerve deficits. Motor grossly within normal limits. Five out of 5 muscle strength in the arms and legs. Normal speech. PSYCHIATRIC: No HI/SI. No ah/vh. Data Data Last Documented VS Vital Signs Date Time Temp Pulse Resp B/P (MAP) Pulse Ox O2 Delivery O2 Flow Rate FiO2 08/31/17 14:52 80 18 177/65 (102) 100 08/31/17 11:56 98.3 Orders Orders Ed Discharge Order (08/31/17 14:47) [facility] Medical Screen Exam Complete: Yes Emergency Medical Condition: No Plan A medical screening exam was performed: At the time of evaluation the presenting medical condition was determined not to be of an emergent nature. The patient was given the option of receiving additional care, but declined. Patient was given options for additional community resources from which to obtain care. The Patient Has Been advised to seek medical attention for their presenting complaint. The patient has been advised to return to the ER at any time if an emergent condition develops. Primary Impression: Encounter for medical screening examination Med/Other Pt SpecificInfo: No Change to Meds Disposition: 01 DISCHARGE HOME Condition: Stable Aime Palomo MD Aug 31, 2017 14:47
[2017-08-31 14:52] VITALS: BP 177/65
[2017-08-31] MEDS ORDERED: LORA1TAB12 PO (14:52)
== END 2017-08-31 15:02 | disposition home or self-care (01) ==
LOC: PHED 11:49
DX: F41.9 Anxiety disorder, unspecified (principal); Z88.0 Allergy status to penicillin; Z79.82 Long term (current) use of aspirin; Z79.899 Other long term (current) drug therapy
CPT/HCPCS: 99283

== ENCOUNTER 2017-09-03 05:29 | Emergency (ER) | payer MEDICARE ==
[~2017-09-03] VITALS: Ht 165.1 cm; Wt 60.6 kg
[~2017-09-03 05:29] MED LIST changes: -HYDR-3580 PO; +LORA1TAB12 PO
[2017-09-03 05:36] VITALS: BP 176/82; PULSE 70; RESP 18; TEMP 96.3; O2SAT 98
[2017-09-03] MEDS ORDERED: LORA1TAB12 PO (06:08)
--- NOTE | 2017-09-03 06:15 | PD ---
HPI Chief Complaint: Cold / Flu Symptoms Time Seen by Provider: 05:56 Travel History International Travel<30 days: No Contact w/Intl Traveler<30days: No Traveled to known affect area: No History of Present Illness HPI The patient is an 81-year-old female that initially came in for swollen glands. The patient later states she thinks she is just anxious. She lives alone and is moving to [facility]. She is under stress with the move and she lives alone. She is a . He denies any fever. Occasionally she has shortness of breath. Her oximetry here is 99%. She denies any sore throat. The glands she is talking about are the anterior cervical chain nodes. PFSH Past Medical History Arthritis: Yes Asthma: No Anxiety: Yes Depression: Yes Heart Rhythm Problems: No Cancer: No Cardiovascular Problems: No High Cholesterol: Yes Chemotherapy: No Chest Pain: No Congestive Heart Failure: No COPD: No Cerebrovascular Accident: No Diabetes: No Diminished Hearing: No Endocrine: No Gastrointestinal Disorders: Yes (CROHNS) GERD: No Genitourinary: No Hepatitis: No Hiatal Hernia: No Hypertension: Yes Immune Disorder: No Implanted Vascular Access Dvce: Yes Kidney Stones: No Musculoskeletal: Yes (OA) Neurologic: Yes (EARLY DEMENTIA NO MEDICATIONS TAKEN) Psychiatric: Yes (DEPRESSION) Reproductive: No Respiratory: No Migraines: No Radiation Therapy: No Renal Failure: No Seizures: No Sickle Cell Disease: No Sleep Apnea: No Thyroid Disease: No Ulcer: No Tetanus Vaccination: Unknown ?: Not Past Surgical History Abdominal Surgery: Yes (HEMMORHOIDECTOMY) AICD: No Arteriovenous Shunt: No Cardiac Surgery: No Ear Surgery: No Endocrine Surgery: No Eye Surgery: Yes (BILATERAL CATARACTS) Genitourinary Surgery: No Gynecologic Surgery: No Insulin Pump: No Joint Replacement: Yes (LEFT KNEE) Oral Surgery: Yes (T/A) Pacemaker: No Thoracic Surgery: No Other Surgery: Yes Social History Alcohol Use: Yes Tobacco Use: No Substance Use: No Allergies-Medications (Allergen,Severity, Reaction): Coded Allergies: Penicillins (Verified Allergy, Severe, Anaphylaxis, 09/03/17) Reported Meds & Prescriptions Reported Meds & Active Scripts Active Lorazepam 1 Mg Tab 1 Mg PO DAILY PRN Adult Aspirin EC Low Strength (Aspirin) 81 Mg Tabec 81 Mg PO BID Reported Amlodipine (Amlodipine Besylate) 2.5 Mg Tab 2.5 Mg PO DAILY Buspirone (Buspirone HCl) 10 Mg Tab 10 Mg PO BID Metoprolol Succinate ER 24 HR (Metoprolol Succinate) 50 Mg Tab 50 Mg PO DAILY Review of Systems Except as stated in HPI: all other systems reviewed are Neg Physical Exam Narrative GENERAL: Well-nourished, well-developed patient who appears slightly anxious but is alert and oriented 3. She is not in any respiratory distress. Her vital signs show blood pressure 176/82 but otherwise normal. Oximetry is 98 and 99% on room air. SKIN: Focused skin assessment warm/dry. No skin rash is seen. HEAD: Normocephalic. EYES: No scleral icterus. No injection or drainage. NECK: Supple, trachea midline. No JVD or lymphadenopathy. I cannot feel any enlarged nodes along the anterior cervical chain where the patient perceives swelling. CARDIOVASCULAR: Regular rate and rhythm without murmurs, gallops, or rubs. RESPIRATORY: Breath sounds equal bilaterally. No accessory muscle use. Lungs clear to auscultation bilaterally. GASTROINTESTINAL: Abdomen soft, non-tender, nondistended. No guarding or rebound is present. MUSCULOSKELETAL: No cyanosis, or edema. BACK: Nontender without obvious deformity. No CVA tenderness. ENT: The throat shows no erythema, abscess or exudate. Data Data Last Documented VS Vital Signs Date Time Temp Pulse Resp B/P (MAP) Pulse Ox O2 Delivery O2 Flow Rate FiO2 09/03/17 05:54 16 98 Room Air 09/03/17 05:36 96.3 70 176/82 (113) Orders Orders Group A Rapid Strep Screen (09/03/17 05:56) Strep Culture (Group A) (09/03/17 06:00) [facility] Medical Decision Making Medical Screen Exam Complete: Yes Emergency Medical Condition: Yes Medical Record Reviewed: Yes Differential Diagnosis Strep pharyngitis, viral pharyngitis, anxiety, enlarged nodes Narrative Course The patient does not appear to have any enlarged nodes. She has more anxiety and is under stress. She had a prescription for lorazepam 1 mg once daily for anxiety. She states she does not have that prescription now. We will refill that prescription. The pharyngitis is extremely minimal, the throat does not appear erythematous and there is no exudate or abscess present. Diagnosis Primary Impression: Anxiety Additional Impression: Viral pharyngitis Additional Instructions: Follow-up with a primary care physician when you get to [place]. Do not drive on lorazepam as it can make you sleepy and dizzy. Med/Other Pt SpecificInfo: Prescription(s) given Scripts Lorazepam (Lorazepam) 1 Mg Tab 1 MG PO DAILY Y for ANXIETY, #20 TAB 0 Refills Prov: José Miguel Lawrence MD 09/03/17 Disposition: 01 DISCHARGE HOME Condition: Stable José Miguel Lawrence MD Sep 03, 2017 06:15
[2017-09-03 06:49] VITALS: BP 181/108; PULSE 75; RESP 16; O2SAT 98
[2017-09-03 07:06] VITALS: BP 169/96
== END 2017-09-03 07:11 | disposition home or self-care (01) ==
LOC: PHED 05:29
DX: F41.9 Anxiety disorder, unspecified (principal); J02.8 Acute pharyngitis due to other specified organisms; R06.02 Shortness of breath; M19.90 Unspecified osteoarthritis, unspecified site; F32.9 Major depressive disorder, single episode, unspecified; E78.00 Pure hypercholesterolemia, unspecified; K50.90 Crohn's disease, unspecified, without complications; I10 Essential (primary) hypertension; F03.90 Unspecified dementia, unspecified severity, without behavioral disturbance, psychotic disturbance, mood disturbance, and anxiety
CPT/HCPCS: 87081; 87880; 99283